=== PATIENT | female | born 1955 | race Caucasian/White ===

== ENCOUNTER 2018-08-20 09:59 | Outpatient (CLI) | payer OTHER ==
[~2018-08-20 09:59] MED LIST: MESTINON60 MG; PERCOCET 5-3251 EACH PO
== END 2018-08-20 14:22 | disposition home or self-care (01) ==
LOC: MRI 09:59
DX: M75.102 Unspecified rotator cuff tear or rupture of left shoulder, not specified as traumatic (principal)
CPT/HCPCS: 73221

== ENCOUNTER 2019-02-11 08:36 | Inpatient (IN) | payer OTHER ==
[~2019-02-11] VITALS: Ht 162.6 cm; Wt 81.6 kg
[2019-02-26] MEDS ORDERED: SINGULAIR10 MG PO (07:54)
[2019-02-26] MEDS ORDERED: PROVENTIL HFA6.7 GM IH (07:54)
[2019-03-08] MEDS ORDERED: MIRALAX17 GM PO (09:54)
[2019-03-08] MEDS ORDERED: TRAMADOL HCL50 MG PO (09:54)
[2019-03-08] MEDS ORDERED: TYLENOL EXTRA500 MG PO (09:54)
== END 2019-03-08 11:21 | disposition home or self-care (01) | DRG 354 ==
LOC: EDSTATUS 02-26 07:00 → ADM 02-26 07:00 → SURH 03-06 07:00 → SURG 03-06 12:02 → O/R 03-06 12:02 → SURH 03-06 16:00 → SURG 03-06 19:36
PROVIDERS: ADMIT Surgery
PROC: 0KUL07Z Supplement Left Abdomen Muscle with Autologous Tissue Substitute, Open Approach (ICD-10-PCS; 2019-03-06)
PROC: 0KUK0KZ Supplement Right Abdomen Muscle with Nonautologous Tissue Substitute, Open Approach (ICD-10-PCS; 2019-03-06)
PROC: 3E0F7GC Introduction of Other Therapeutic Substance into Respiratory Tract, Via Natural or Artificial Opening (ICD-10-PCS; 2019-03-06)
PROC: 0WUF4JZ Supplement Abdominal Wall with Synthetic Substitute, Percutaneous Endoscopic Approach (ICD-10-PCS; principal; 2019-03-06 16:00)
DX: K43.0 Incisional hernia with obstruction, without gangrene (principal); J45.41 Moderate persistent asthma with (acute) exacerbation; K42.0 Umbilical hernia with obstruction, without gangrene

== ENCOUNTER 2019-05-21 07:43 | Outpatient (CLI) | payer OTHER ==
[~2019-05-21] VITALS: Ht 162.6 cm; Wt 81.2 kg
[~2019-05-21 07:43] MED LIST changes: +MIRALAX17 GM PO; +PROVENTIL HFA6.7 GM IH; +SINGULAIR10 MG PO; +TRAMADOL HCL50 MG PO; +TYLENOL EXTRA500 MG PO
[2019-05-21] MEDS ORDERED: DERMOTIC20 ML OTIC (11:02)
== END 2019-05-21 08:05 | disposition home or self-care (01) ==
LOC: OFIC 805 07:43
DX: J31.0 Chronic rhinitis (principal); L29.8 Other pruritus; H61.23 Impacted cerumen, bilateral; H90.3 Sensorineural hearing loss, bilateral

== ENCOUNTER 2019-12-05 19:41 | Emergency (ER) | payer OTHER ==
[~2019-12-05] VITALS: Ht 162.6 cm; Wt 81.6 kg
[~2019-12-05 19:41] MED LIST changes: +DERMOTIC20 ML OTIC
== END 2019-12-05 21:25 | disposition home or self-care (01) ==
LOC: ER 19:41
DX: S40.012A Contusion of left shoulder, initial encounter (principal); S00.83XA Contusion of other part of head, initial encounter; W18.09XA Striking against other object with subsequent fall, initial encounter; Y93.89 Activity, other specified; Y92.018 Other place in single-family (private) house as the place of occurrence of the external cause; Y99.8 Other external cause status

== ENCOUNTER 2019-12-09 09:15 | Outpatient (CLI) | payer OTHER | END 2019-12-09 09:27 | disposition home or self-care (01) | LOC: MRI 09:15 | DX: S40.012A Contusion of left shoulder, initial encounter (principal) | CPT/HCPCS: 73221 ==

== ENCOUNTER 2020-04-26 01:35 | Inpatient (IN) | payer OTHER ==
[~2020-04-26] VITALS: Ht 162.6 cm; Wt 81.6 kg
[2020-04-29] MEDS ORDERED: MESTINON60 M1 PO (18:53)
[2020-04-29] MEDS ORDERED: MONTELUKAST SOD10 MG PO (18:53)
[2020-04-29] MEDS ORDERED: LOPRESSOR25 MG PO (18:53)
[2020-04-29] MEDS ORDERED: ELIQUIS5 MG PO (18:53)
== END 2020-04-29 19:55 | disposition home or self-care (01) | DRG 310 ==
LOC: ER 01:35 → SEC-K 10:01 → MEDI 10:01
PROVIDERS: ADMIT Internal Medicine; ATTEND Internal Medicine
PROC: 4A12X4Z Monitoring of Cardiac Electrical Activity, External Approach (ICD-10-PCS; principal; 2020-04-26)
PROC: B24BZZZ Ultrasonography of Heart with Aorta (ICD-10-PCS; 2020-04-26)
PROC: C23GYZZ Positron Emission Tomographic (PET) Imaging of Myocardium using Other Radionuclide (ICD-10-PCS; 2020-04-27)
PROC: B54DZZZ Ultrasonography of Bilateral Lower Extremity Veins (ICD-10-PCS; 2020-04-27)
PROC: B345ZZZ Ultrasonography of Bilateral Common Carotid Arteries (ICD-10-PCS; 2020-04-29)
DX: I48.0 Paroxysmal atrial fibrillation (principal); E66.3 Overweight; I87.2 Venous insufficiency (chronic) (peripheral)

== ENCOUNTER → 2020-07-05 14:56 | Outpatient (CLI) | payer OTHER ==
[~2020-07-05 14:56] MED LIST changes: +ELIQUIS5 MG PO; +LOPRESSOR25 MG PO; +MESTINON60 M1 PO; +MONTELUKAST SOD10 MG PO
== END | disposition home or self-care (01) ==
LOC: LAB 14:56
PROVIDERS: ATTEND Radiology Diagnostic Radiology
DX: N20.0 Calculus of kidney (principal)

== ENCOUNTER 2020-07-07 07:32 | Outpatient (CLI) | payer OTHER | END 2020-07-07 07:44 | disposition home or self-care (01) | LOC: MRI → TOM 07:32 → MRI 08:15 | PROVIDERS: ATTEND Internal Medicine | DX: K44.9 Diaphragmatic hernia without obstruction or gangrene (principal); N20.0 Calculus of kidney; R31.29 Other microscopic hematuria | CPT/HCPCS: 74177; Q9965 ==

== ENCOUNTER 2023-01-18 09:52 | Outpatient (CLI) | payer OTHER ==
[~2023-01-18 09:52] MED LIST changes: +FLECAINIDE ACET50 MG PO
== END 2023-01-18 10:03 | disposition home or self-care (01) ==
LOC: SONOGRAMA 09:52
PROVIDERS: ATTEND Orthopaedic Surgery
DX: M25.511 Pain in right shoulder (principal); M25.512 Pain in left shoulder

== ENCOUNTER 2024-07-11 07:17 | Outpatient (CLI) | payer OTHER | END 2024-07-11 07:25 | disposition home or self-care (01) | LOC: NUCLEAR 07:17 | PROVIDERS: ATTEND Internal Medicine | DX: I20.9 Angina pectoris, unspecified (principal) | CPT/HCPCS: 78452; 93017; A9500 ==